=== PATIENT | male | born 1965 | race Caucasian/White ===

== ENCOUNTER 2024-06-15 12:33 | Emergency (ER) | payer OTHER, SELFPAY ==
[2024-06-15 12:35] VITALS: BP 157/93
--- NOTE | 2024-06-15 15:33 | ED.GENMED ---
History of Present Illness
<Lyudmila Hadley PA-C - Last Filed: 06/17/24 09:54>
General
Chief Complaint: Abdominal Symptoms
Source: patient
Exam Limitations: none
Time Seen by Provider: 06/15/24 15:08
Nursing documentation reviewed up to this point in time: agreed with
History of Present Illness
History of Present Illness:
pt is a 58 y/o M with h/o large hital hernia, recurrent paraesophageal hernia
s/p funduplication last in 2019
has bene having worsening sypmtoms of GERD and pain with eating
so he had an outpatient order for a barium swallow which was done at [facility]
he says that sduring the study he was told that the barium he drank never emptied from his stomach and that he could have a gastric volvulus
[facility] ER at [facility] but pt refused, syaing his is known to dr. saavedra at so he cam ehere
pt has not had any abdomianl pain, vomiting, regurgtiation, fever
he is having some chronic dyspepsia because he hastn' eaten anything and is due for his meds
Past History
<Lyudmila Hadley PA-C - Last Filed: 06/17/24 09:54>
Past History
ED Past Medical History: Other (Chronic lung issue, due to scarring)
ED Past Surgical History: Negative Cardiac
Social History
Tobacco: Non-smoker
Alcohol: Occasional
Drug: None
Personal:
Living: with family
Employment: Employed
Family History
Family History: Other (Noncontributory)
Review of Systems
<Lyudmila Hadley PA-C - Last Filed: 06/17/24 09:54>
Review of Systems
Allergies reviewed?: Yes
All Other Systems: Not applicable
Phy Exam
<Lyudmila Hadley PA-C - Last Filed: 06/17/24 09:54>
Physical Exam
Physical Exam:
GENERAL: Alert , in no apparent distress, very comfortable
EYE: pupils equal and reactive
NECK: Supple
ENT: o/p clr, mmm.
CARDIAC: Regular rate and rhythm .
LUNGS: Clear breath sounds bilaterally, no acute respiratory distress, no wheezes/rales/rhonchi
ABDOMEN: Soft, without focal tenderness, no r/g, no cvat, normal bowel sounds
NEUROLOGICAL: Alert and oriented, no focal neuro deficits
SKIN: Warm and dry, skin intact.
MUSCULOSKELETAL: No edema, well perfused. neg rayray's sign
PSYCH: Normal and appropriate interaction.
Course
<STEFANY Palafox Last Filed: 06/17/24 09:54>
Orders/Labs/Results
Orders:
Orders
06/15/24 16:43
Complete Blood Count/With Diff Urgent
Comprehensive Metabolic Panel Urgent
06/15/24 17:03
Abdomen Xray - 1 View [CR Abdomen - 1 View] Urgent
Comment:
Reason For Exam: had barium swallow; barium didn't empty; eval
Abnormal Lab Results
06/15/24
16:43
RBC 4.53 L 10^6/uL
(4.70-6.10)
MCH 31.1 H pg
(27.0-31.0)
Absolute Monos (auto) 0.7 H 10^3/uL
(0.1-0.6)
Lymphocytes % 19.6 L %
(20.5-51.1)
06/15/24 16:43
06/15/24 16:43
Vital Signs
Initial and Last Documented VS:
Initial Vital Signs
Temp Pulse Resp BP Pulse Ox
36.8 C 77 18 157/93 99
06/15/24 12:35 06/15/24 12:35 06/15/24 12:35 06/15/24 12:35 06/15/24 12:35
Last Documented Vital Signs
Temp Pulse Resp BP Pulse Ox
36.8 C 77 18 157/93 99
06/15/24 12:35 06/15/24 12:35 06/15/24 16:54 06/15/24 12:35 06/15/24 12:35
<Ga Evangelista PA-C - Last Filed: 06/15/24 17:56>
Orders/Labs/Results
Orders:
Orders
06/15/24 16:43
Complete Blood Count/With Diff Urgent
Comprehensive Metabolic Panel Urgent
06/15/24 17:03
Abdomen Xray - 1 View [CR Abdomen - 1 View] Urgent
Comment:
Reason For Exam: had barium swallow; barium didn't empty; eval
Abnormal Lab Results
06/15/24
16:43
RBC 4.53 L 10^6/uL
(4.70-6.10)
MCH 31.1 H pg
(27.0-31.0)
Absolute Monos (auto) 0.7 H 10^3/uL
(0.1-0.6)
Lymphocytes % 19.6 L %
(20.5-51.1)
06/15/24 16:43
06/15/24 16:43
Vital Signs
Initial and Last Documented VS:
Initial Vital Signs
Temp Pulse Resp BP Pulse Ox
36.8 C 77 18 157/93 99
06/15/24 12:35 06/15/24 12:35 06/15/24 12:35 06/15/24 12:35 06/15/24 12:35
Last Documented Vital Signs
Temp Pulse Resp BP Pulse Ox
36.8 C 77 18 157/93 99
06/15/24 12:35 06/15/24 12:35 06/15/24 16:54 06/15/24 12:35 06/15/24 12:35
<Lyudmila Hadley PA-C - Last Filed: 06/17/24 09:54>
MDM/Problems Addressed
Differential Diagnosis Includes:
GERD, gastric volvulus, delayed gastric emptying, outlet obstruction
MDM/Problems Addressed:
58 y/o M
recurrent paraesophageal hernia s/p toupet fundopliation x [address]
here after having abnormal imaging study at [facility]
pt has been more symptomatic with his dyspepsia for a few months so dr. saavedra ordered this study so pt had it at [facility]
he was told that the contrast did not empty into his duodenum and he coul dhave a volvulus
he was told to come to the Er
pt is not vomiting
has not vomited at all since swallowing the barium
looks well
has some complaints of GERD
nontender abdomen
stable vitals
d/w dr. saavedra; pt has copy of the images which were uploaded into the system and dr. saavedra is going to review
he asked for screening labs as pt has been more anemic when he is more sypmtoamtic.
pt is hungry and asking to eat.
<Ga Evangelista PA-C - Last Filed: 06/15/24 17:56>
*Critical Care Note
Total Time (30-74mins, 75-104mins- exclusive of procedures): Not Applicable
<Ga Evangelista PA-C - Last Filed: 06/15/24 17:56>
Update Note
Update Note:
Reviewed imaging results with , patient acutely is stable with no abdominal pain thus is suitable for discharge home and outpatient follow-up. Recommends soft diet/full liquids and small portions to minimize increased symptoms until
outpatient follow-up
ED Attending Note
<Lyudmila Hadley PA-C - Last Filed: 06/17/24 09:54>
-
Portions of this chart may have been created with voice recognition software.� Occasional wrong word or��sound alike� substitutions may have occurred due to the inherent limitations of voice recognition software.
Discharge Plan
Departure
Patient Disposition: Home (Routine Discharge)
Date of Disposition: 06/15/24
Time of Disposition: 17:49
Patient with high blood pressure during this ER visit?: No
Condition: Fair
Covid-19: Not Applicable
Discharge Problem:
GERD (gastroesophageal reflux disease)
Instructions: Acid reflux and GERD in adults
Prescriptions:
No Action
esomeprazole magnesium [Nexium] 20 mg Capsule,Delayed Release(Dr/Ec)
20 mg PO BID@0800,1700
mometasone 0.1 % cream
1 applic TOPICAL BIDPRN PRN (Reason: eczema affected areas)
famotidine 20 mg tablet
20 mg PO HS
gabapentin 100 mg Capsule
100 mg PO DAILYPRN PRN (Reason: pain )
albuterol sulfate 90 mcg/actuation HFA aerosol inhaler
2 inh INHALATION Q4HPRN PRN (Reason: SOB/wheeze)
sucralfate 1 gram tablet
1 g PO AC
Referrals:
Lyudmila Eugene MD [Family Provider] -
Raymundo Saavedra MD [Active] -
Activity Restrictions/Additional Instructions:
Soft foods/liquid diet and small portions until surgery follow up
Dr Saavedra will call you within 48 hours
Interventions
Interventions:
*Risk Screen - Suicide Last Done: 06/15/24 12:35
*General Assessment Last Done: 06/15/24 12:35
*Neglect/Abuse Screening Last Done: 06/15/24 12:35
ED- Fall Risk Assessment Last Done: 12/10/24 18:00
*ED COVID-19 Vaccine History Last Done: 06/15/24 12:35
*Nursing Disposition Last Done: 06/15/24 18:00
PC-[facility]-Ppwnrsiapo Assessment Last Done: 06/15/24 18:00
Discharge Date and Time
Discharge Date/Time: 06/15/24 18:05
Print Language: GAMBIAN
[2024-06-15 16:57] LABS: % Basophils 0.5 % (0-2); % Eosinophils 2.4 % (0-6); % Immature Granulocytes 0.2 % (0-0.5); % Lymphocytes 19.6 % (20.5-51.1); % Monocytes 8.3 % (1.7-9.3); Absolute Eosinophils 0.2 10^3/uL (0-0.7); Absolute Lymphocytes 1.7 10^3/uL (1.2-3.4); Absolute Monocytes 0.7 10^3/uL (0.1-0.6); Absolute Neutrophils 5.8 10^3/uL (1.4-6.5); Hematocrit 41.3 % (39.0-52.0); Hemoglobin 14.1 g/dL (13.0-18.0); Mean Corp Hgb Conc. 34.1 g/dL (33.0-37.0); Mean Corpuscular Hgb 31.1 pg (27.0-31.0); Mean Corpuscular Volume 91.2 fL (80.0-94.0); Nucleated Red Blood Cells % 0 % (-); Platelet Count 252 10^3/uL (130-400); Red Blood Cell Count 4.53 10^6/uL (4.70-6.10); Red Cell Dist. Width 12.5 % (11.5-14.5); White Blood Cell Count 8.4 10^3/uL (4.8-10.8)
[2024-06-15 17:04] LABS: ALT (SGPT) 27 U/L (0-50); AST (SGOT) 24 U/L (17-59); Albumin 4.7 g/dl (3.5-5.0); Alkaline Phosphatase 62 U/L (38-126); Blood Urea Nitrogen 11 mg/dl (9-20); Calcium 9.5 mg/dl (8.4-10.2); Carbon Dioxide 27 mmol/L (22-30); Chloride 103 mmol/L (98-107); Glucose 98 mg/dl (70-99); Potassium 3.7 mmol/L (3.5-5.1); Sodium 140 mmol/L (135-145); Total Bilirubin 0.8 mg/dl (0.2-1.3); Total Protein 7.4 g/dl (6.3-8.2); eGFR > 60.00
== END 2024-06-15 18:05 | disposition home or self-care (01) ==
LOC: EMR 12:33
PROVIDERS: Physician Assistant; EMERGENCY PHYSICIAN Emergency Medicine; FAMILY PHYSICIAN Family Medicine
DX: K21.9 Gastro-esophageal reflux disease without esophagitis (principal); K44.9 Diaphragmatic hernia without obstruction or gangrene; D64.9 Anemia, unspecified
CPT/HCPCS: 99283; 74018; 80053; 85025